=== PATIENT | male | born 1985 | race Caucasian/White ===

== ENCOUNTER → 2022-07-09 | Outpatient (CLI) | payer OTHER ==
[~2022-07-09] MED LIST: IOPAMIDOL 370 MG/ML 100 ML INFUS..BTL INJ ONE
== END ==
LOC: CT 14:52
PROVIDERS: ATTEND Internal Medicine Cardiovascular Disease
DX: I36.9 Nonrheumatic tricuspid valve disorder, unspecified (principal)
CPT/HCPCS: 71260; Q9967